=== PATIENT | male | born 1955 ===

== ENCOUNTER 2017-10-12 21:24 | Emergency (ER) | payer BC, OTHER ==
[2017-10-12] MEDS ORDERED: Iohexol 240 (50 ml) PO ONE (21:49)
[2017-10-12] MEDS ORDERED: Iohexol 240 (50 ml) ONE (21:54)
[2017-10-12] MEDS ORDERED: Morphine 4 MG/ML VIAL ONE (21:54)
--- NOTE | 2017-10-12 21:55 | ED PDOC ---
HPI: Abdomen Time Seen by Provider: 10/12/17 21:40 Chief Complaint (Nursing): Abdominal Pain Chief Complaint (Provider): Abdominal pain, nausea History Per: Patient, Family History/Exam Limitations: no limitations Onset/Duration Of Symptoms: Hrs Outside of [place] travel?: No Current Symptoms Are (Timing): Still Present Location Of Pain/Discomfort: RUQ, RLQ Quality Of Discomfort: Sharp, Cramping, Stabbing Associated Symptoms: Nausea, Loss Of Appetite. denies: Fever, Chills, Vomiting , Diarrhea Exacerbating Factors: None Alleviating Factors: None Last Bowel Movement: Today Additional Complaint(s): Pt states that he was having pain since yesterday, worse for 2 hours. PT reports nausea but states he is not going to vomit. Pt had Rx for cipro and flagyl which he began yesterday for his history of diverticulitis. Pt had resection of large intestine due to diverticulitis in the past and for hernia repair. Pt denies fever/chills. Denies urinary symptoms. Past Medical History Reviewed: Historical Data, Nursing Documentation, Vital Signs Vital Signs: Last Vital Signs Temp 98.2 F 10/12/17 22:49 Pulse 104 H 10/12/17 21:31 Resp 16 10/12/17 21:31 BP 149/88 10/12/17 21:31 Pulse Ox 100 10/12/17 21:56 - Medical History PMH: COPD, Diverticulitis, Gastritis, HTN, Hypercholesterolemia, Hyperlipidemia Denies: Chronic Kidney Disease - Surgical History Surgical History: Appendectomy, Hernia Repair (Left abd) - Family History Family History: States: Unknown Family Hx - Living Arrangements Living Arrangements: With Family - Social History Current smoker - smoking cessation education provided: No Alcohol: None Drugs: Denies - Home Medications Home Medications: Ambulatory Orders Medication Instructions Recorded Esomeprazole Magnesium [Nexium] 40 mg PO DAILY 11/08/14 Losartan [Cozaar] 50 mg PO DAILY 11/08/14 Zolpidem [Ambien] 10 mg PO HS 01/06/16 Ciprofloxacin HCl [Cipro] 500 mg PO BID 7 Days tab 09/25/16 Metronidazole [Flagyl] 500 mg PO TID 7 Days tablet 09/25/16 Cyclobenzaprine [Cyclobenzaprine 10 mg PO BID #14 tab 10/08/16 HCl] Ibuprofen [Motrin] 400 mg PO Q6 #30 tab 10/08/16 Ciprofloxacin [Cipro] 500 mg PO BID #14 tab 11/21/16 traMADol [Ultram] 50 mg PO TID PRN #20 tab 11/21/16 Ondansetron ODT [Zofran ODT] 4 mg PO QID #20 odt 10/13/17 oxyCODONE/Acetaminophen [Percocet 1 ea PO Q6H PRN #15 tab 10/13/17 5/325 mg Tab] - Allergies Allergies/Adverse Reactions: Allergies Allergy/AdvReac Type Severity Reaction Status Date / Time No Known Allergies Allergy Verified 01/06/16 14:09 Review of Systems ROS Statement: Except As Marked, All Systems Reviewed And Found Negative Constitutional: Positive for: Fever. Negative for: Chills Gastrointestinal: Positive for: Nausea, Abdominal Pain. Negative for: Vomiting , Diarrhea Genitourinary Male: Negative for: Dysuria, Frequency, Hematuria Physical Exam - Reviewed Nursing Documentation Reviewed: Yes Vital Signs Reviewed: Yes - Physical Exam Appears: Positive for: Well, Non-toxic, No Acute Distress Head Exam: Positive for: ATRAUMATIC, NORMAL INSPECTION, NORMOCEPHALIC Skin: Positive for: Normal Color, Warm, DRY Eye Exam: Positive for: Normal appearance ENT: Positive for: Normal ENT Inspection Neck: Positive for: Normal, Painless ROM Cardiovascular/Chest: Positive for: Regular Rate, Rhythm Respiratory: Positive for: Normal Breath Sounds. Negative for: Accessory Muscle Use Gastrointestinal/Abdominal: Positive for: Bowel Sounds, Soft, Tenderness (RLQ, LLQ). Negative for: Normal Exam, Distended, Guarding, Rebound Back: Positive for: Normal Inspection Extremity: Positive for: Normal ROM Neurologic/Psych: Positive for: Alert, Oriented - Laboratory Results Result Diagrams: 10/12/17 22:26 10/12/17 22:26 - ECG O2 Sat by Pulse Oximetry: 100 Pulse Ox Interpretation: Normal Medical Decision Making Medical Decision Making: Discussed findings on CT scan with patient, and family including DDx. Pts GI is Dr. Duran. States he will call him tomorrow to have colonoscopy scheduled. Pt provided copy of CT report. Continue antibiotics. Pt comfortable at discharge. Disposition - Clinical Impression Clinical Impression: Mural thickening of colon - Patient ED Disposition Is Patient to be Admitted: No - Disposition Disposition: Routine/Home Disposition Time: 01:00 Condition: GOOD Additional Instructions: Please follow-up with Dr. Duran or gastroenterology for further evaluation of abnormal CT result. Prescriptions: Ondansetron ODT [Zofran ODT] 4 mg PO QID #20 odt oxyCODONE/Acetaminophen [Percocet 5/325 mg Tab] 1 ea PO Q6H PRN #15 tab PRN Reason: Pain, Severe (8-10) Instructions: Colonoscopy (GEN) Forms: [employer] (Danish)
[2017-10-12] MEDS ORDERED: Morphine 4 MG/ML VIAL IVP STA (22:23)
[2017-10-12 22:30] LABS: BASO # 0.1 K/uL (0.0-0.2); BASO % 0.8 % (0.0-2.0); EOS # 0.5 K/uL (0.0-0.7); EOS % 3.6 % (0.0-4.0); HEMOGLOBIN 13.6 g/dL (12.0-18.0); LYMPH # 3.1 K/uL (1.0-4.3); MEAN CELL VOLUME 87.1 fl (80.0-94.0); MEAN CORPUSCULAR HGB CONC 34.4 g/dL (33.0-37.0); MEAN PLATELET VOLUME 8.2 fl (7.2-11.7); MONO # 0.9 K/uL (0.0-0.8); MONO % 6.6 % (0.0-10.0); NEUT # 8.9 K/uL (1.8-7.0); RBC 4.53 Mil/uL (4.40-5.90); WHITE BLOOD COUNT 13.4 K/uL (4.8-10.8)
[2017-10-12 22:38] LABS: ALB/GLOB RATIO 1.2 (1.0-2.1); ALBUMIN 3.9 g/dL (3.5-5.0); ALT/SGPT 41 U/L (21-72); AST/SGOT 21 U/L (17-59); BLOOD UREA NITROGEN 16 mg/dl (9-20); CALCIUM 8.8 mg/dL (8.4-10.2); GFR AFRICAN-AMERICAN > 60; GFR NON-AFRICAN AMERICAN > 60
[2017-10-12 22:50] VITALS: TEMP 98.2
[2017-10-12] MEDS ORDERED: Sodium Chloride 0.9% 50 ML IV ONE (23:56)
[2017-10-12] MEDS ORDERED: Iohexol 300 50 ML ONE (23:56)
[2017-10-13 01:25] VITALS: BP 134/79; PULSE 84; RESP 14; O2SAT 95
--- NOTE | 2017-10-13 09:14 | CT ---
PROCEDURE: CT Abdomen and Pelvis with contrast HISTORY: abdominal pain, nausea COMPARISON: 11/21/2016 TECHNIQUE: Contrast dose: 90 mL Omnipaque 300 Radiation dose: Total exam DLP = 907.82 mGy-cm. This CT exam was performed using one or more of the following dose reduction techniques: Automated exposure control, adjustment of the mA and/or kV according to patient size, and/or use of iterative reconstruction technique. FINDINGS: LOWER THORAX: Small amount of oral contrast noted in distal esophagus, nonspecific. Possible gastroesophageal reflux. LIVER: Unremarkable. No gross lesion or ductal dilatation. GALLBLADDER AND BILE DUCTS: Unremarkable. PANCREAS: Unremarkable. No gross lesion or ductal dilatation. SPLEEN: Unremarkable. ADRENALS: Unremarkable. No mass. KIDNEYS AND URETERS: Unremarkable. No hydronephrosis. No solid mass. VASCULATURE: Unremarkable. No aortic aneurysm. BOWEL: Circumferential mural thickening of the hepatic flexure of the colon. Diverticulosis of the transverse colon and flexures. Hazy infiltration of the pericolonic fat about the splenic flexure. Differential diagnosis includes focal colitis such as acute diverticulitis or colonic neoplasm. Further evaluation is advised. No other abnormal bowel loops are identified. No bowel obstruction. APPENDIX: Not visualized PERITONEUM: Unremarkable. No free fluid. No free air. LYMPH NODES: Unremarkable. No enlarged lymph nodes. BLADDER: Unremarkable. REPRODUCTIVE: Normal prostate BONES: No acute fracture. OTHER FINDINGS: None. IMPRESSION: Focal mural thickening of the splenic flexure of the colon with hazy infiltration of the pericolonic fat. Differential diagnosis includes acute focal colitis/ diverticulitis versus colonic neoplasm. Possible gastroesophageal reflux noted with residual oral contrast in the distal esophagus. Preliminary interpretation of this examination was reported by [employer] at 12:26 a.m. on 10/13/2017. There is concurrence of this report with the preliminary interpretation.
--- NOTE | 2017-10-13 10:50 | CARD ---
APPROVED REPORT EKG Measurement Heart [id number] <Conclusion> Normal sinus rhythm Incomplete right bundle branch block Nonspecific T wave abnormality Abnormal ECG
== END 2017-10-13 01:25 | disposition home or self-care (01) ==
LOC: H.ER 21:24
DX: K56.690 Other partial intestinal obstruction (principal); E78.00 Pure hypercholesterolemia, unspecified; I10 Essential (primary) hypertension; J44.9 Chronic obstructive pulmonary disease, unspecified
CPT/HCPCS: 74177; 80053; 84484; 85025; 87040; 87086; 93005; 96374; 96375; 99282; J1885; J2270; J2405; Q9966; Q9967

== ENCOUNTER 2017-11-28 12:30 | Inpatient (IN) | payer BC ==
--- NOTE | 2017-11-28 13:01 | ED PDOC ---
HPI: Abdomen Time Seen by Provider: 11/28/17 12:40 Chief Complaint (Nursing): Abdominal Pain History Per: Patient Onset/Duration Of Symptoms: Days (2) Current Symptoms Are (Timing): Still Present Severity: Moderate Pain Scale Rating Of: 5 Location Of Pain/Discomfort: RLQ Quality Of Discomfort: Unable To Describe Associated Symptoms: Fever, Nausea, Vomiting. denies: Diarrhea, Urinary Symptoms Additional Complaint(s): Right sided abd pain assoc with vomiting and fever. Denies diarrhea. Recently tx 'ed for diverticulitis. Past Medical History Vital Signs: Last Vital Signs Temp 98.4 F 11/28/17 12:32 Pulse 116 H 11/28/17 12:32 Resp 16 11/28/17 12:32 BP 127/81 11/28/17 12:32 Pulse Ox 100 11/28/17 13:01 - Medical History PMH: COPD, Diverticulitis, Gastritis, HTN, Hypercholesterolemia, Hyperlipidemia Denies: Chronic Kidney Disease - Surgical History Surgical History: Appendectomy, Hernia Repair (Left abd) - Family History Family History: States: Unknown Family Hx - Home Medications Home Medications: Ambulatory Orders Medication Instructions Recorded Esomeprazole Magnesium [Nexium] 40 mg PO DAILY 11/08/14 Losartan [Cozaar] 50 mg PO DAILY 11/08/14 Zolpidem [Ambien] 10 mg PO HS 01/06/16 Ciprofloxacin HCl [Cipro] 500 mg PO BID 7 Days tab 09/25/16 Metronidazole [Flagyl] 500 mg PO TID 7 Days tablet 09/25/16 Cyclobenzaprine [Cyclobenzaprine 10 mg PO BID #14 tab 10/08/16 HCl] Ibuprofen [Motrin] 400 mg PO Q6 #30 tab 10/08/16 Ciprofloxacin [Cipro] 500 mg PO BID #14 tab 11/21/16 traMADol [Ultram] 50 mg PO TID PRN #20 tab 11/21/16 Ondansetron ODT [Zofran ODT] 4 mg PO QID #20 odt 10/13/17 oxyCODONE/Acetaminophen [Percocet 1 ea PO Q6H PRN #15 tab 10/13/17 5/325 mg Tab] - Allergies Allergies/Adverse Reactions: Allergies Allergy/AdvReac Type Severity Reaction Status Date / Time No Known Allergies Allergy Verified 01/06/16 14:09 Review of Systems ROS Statement: Except As Marked, All Systems Reviewed And Found Negative Constitutional: Positive for: Fever Gastrointestinal: Positive for: Nausea, Vomiting, Abdominal Pain. Negative for : Diarrhea, Hematochezia, Hematemesis Physical Exam - Reviewed Nursing Documentation Reviewed: Yes Vital Signs Reviewed: Yes - Physical Exam Appears: Positive for: Non-toxic, No Acute Distress Head Exam: Positive for: ATRAUMATIC, NORMAL INSPECTION, NORMOCEPHALIC Skin: Positive for: Normal Color, Warm, DRY Eye Exam: Positive for: EOMI, Normal appearance, PERRL ENT: Positive for: Normal ENT Inspection Neck: Positive for: Normal, Painless ROM Cardiovascular/Chest: Positive for: Regular Rate, Rhythm Respiratory: Positive for: CNT, Normal Breath Sounds Gastrointestinal/Abdominal: Positive for: Bowel Sounds, Soft, Tenderness (RLQ) Back: Positive for: Normal Inspection Extremity: Positive for: Normal ROM Neurologic/Psych: Positive for: Alert, Oriented - Laboratory Results Result Diagrams: 11/28/17 13:14 11/28/17 13:14 - ECG O2 Sat by Pulse Oximetry: 100 Disposition - Clinical Impression Clinical Impression: Diverticulitis large intestine, Sepsis - Patient ED Disposition Is Patient to be Admitted: Yes - Disposition Disposition Time: 14:42 Condition: FAIR Forms: [employer] (Amharic) - Pt Status Changed To: Hospital Disposition Of: Inpatient - Admit Certification Admit to Inpatient:: After my assessment, the patient will require hospitalization for at least two midnights. This is because of the severity of symptoms shown, intensity of services needed, and/or the medical risk in this patient being treated as an outpatient. - POA Present On Arrival: None
[2017-11-28] MEDS ORDERED: Sodium Chloride 0.9% 50 ML IV ONE (13:08)
[2017-11-28] MEDS ORDERED: Iohexol 300 100 ML IJ ONE (13:08)
[2017-11-28 13:21] LABS: BASO # 0.1 K/uL (0.0-0.2); BASO % 0.6 % (0.0-2.0); EOS # 0.1 K/uL (0.0-0.7); EOS % 0.8 % (0.0-4.0); HEMOGLOBIN 13.4 g/dL (12.0-18.0); LYMPH # 1.7 K/uL (1.0-4.3); LYMPH % 12.9 % (20.0-40.0); MEAN CELL VOLUME 86.6 fl (80.0-94.0); MEAN CORPUSCULAR HEMOGLOBIN 29.8 pg (27.0-31.0); MEAN CORPUSCULAR HGB CONC 34.4 g/dL (33.0-37.0); MEAN PLATELET VOLUME 8.4 fl (7.2-11.7); MONO # 0.8 K/uL (0.0-0.8); MONO % 6.3 % (0.0-10.0); NEUT # 10.6 K/uL (1.8-7.0); NEUT % 79.4 % (50.0-75.0); RBC 4.5 Mil/uL (4.40-5.90); RED CELL DISTRIBUTION WIDTH 13.2 % (11.5-14.5); WHITE BLOOD COUNT 13.4 K/uL (4.8-10.8)
[2017-11-28 13:44] LABS: ALB/GLOB RATIO 1.2 (1.0-2.1); ALBUMIN 3.9 g/dL (3.5-5.0); ALT/SGPT 26 U/L (21-72); AST/SGOT 21 U/L (17-59); BLOOD UREA NITROGEN 18 mg/dl (9-20); CALCIUM 8.7 mg/dL (8.4-10.2); GFR AFRICAN-AMERICAN > 60; GFR NON-AFRICAN AMERICAN > 60
[2017-11-28 13:46] LABS: VENOUS BLOOD GAS BASE EXCESS 1.7 mmol/L (0.0-2.0); VENOUS BLOOD GAS PCO2 32 mmHg (40-60); VENOUS BLOOD GAS PO2 36 mm/Hg (30-55); VENOUS BLOOD PH 7.49 (7.32-7.43)
[2017-11-28] MEDS ORDERED: Sodium Chloride 0.9% 1,000 ML IV STA (14:33)
--- NOTE | 2017-11-28 14:35 | CT ---
PROCEDURE: CT Abdomen and Pelvis with contrast HISTORY: abd pain RLQ h/o diverticulitis COMPARISON: Comparison is made to the previous study dated 10/13/2017 TECHNIQUE: Contrast dose: 98 cc of Omnipaque. Axial and reformatted coronal and sagittal CT images of the abdomen and pelvis were obtained after IV contrast administration. Radiation dose: Total exam DLP = 1155.63 mGy-cm. This CT exam was performed using one or more of the following dose reduction techniques: Automated exposure control, adjustment of the mA and/or kV according to patient size, and/or use of iterative reconstruction technique. FINDINGS: LOWER THORAX: No evidence of acute pathology at the lung bases. LIVER: Unremarkable. No gross lesion or ductal dilatation. GALLBLADDER AND BILE DUCTS: Unremarkable. PANCREAS: Unremarkable. No gross lesion or ductal dilatation. SPLEEN: Unremarkable. ADRENALS: Unremarkable. No mass. KIDNEYS AND URETERS: Unremarkable. No hydronephrosis. No solid mass. VASCULATURE: Unremarkable. No aortic aneurysm. BOWEL: There are inflammatory changes adjacent to the cecum. Differential consideration includes focal colitis versus diverticulitis or appendagitis . No evidence of bowel obstruction. Scattered colonic diverticulosis are seen. Postsurgical changes noted in the descending colon again. APPENDIX: No evidence of appendicitis. The appendix is not visualized. PERITONEUM: Unremarkable. No free fluid. No free air. LYMPH NODES: Unremarkable. No enlarged lymph nodes. BLADDER: Unremarkable. REPRODUCTIVE: Unremarkable. BONES: No acute fracture. OTHER FINDINGS: None. IMPRESSION: Inflammatory changes noted adjacent to the cecum. Differential consideration include focal colitis, appendicitis or appendagitis. Otherwise no evidence of acute pathology in the abdomen and pelvis.
[2017-11-28] MEDS ORDERED: Piperacillin/Tazobact 3.375 GM in Sodium Chloride 0.9% 100 ML IVPB STA (14:39)
[2017-11-28] MEDS ORDERED: Piperacillin/Tazobact 3.375 gm Inj IVPB ONE (15:01)
[2017-11-28] MEDS ORDERED: Morphine 4 MG/ML VIAL ONE (16:58)
[2017-11-28] MEDS: Dextrose 5%/Lactated Ringer's 1,000 ML IV SCH (16:59)
--- NOTE | 2017-11-28 19:11 | CP.PCM.CON ---
<Bridget Tate - Last Filed: 11/28/17 19:08> History of Present Illness - History of Present Illness History of Present Illness: General surgery consult note for Dr. Dori Tate, PGY-1 Pt S & E at bedside with attending 62M w/PMH sig for diverticulitis s/p colectomy consulted for RLQ abdominal pain x 1 days. Pt reports suddent onset of RLQ abdominal pain, severe, constant, radiates to epigastric region and LLQ. Admits to fevers (subjective), diarrhea (non bloody), headache, hunger, nausea, vomiting. Denies chills, constipation, hematuria, hematochezia, melena. Pt reports recent colonoscopy (Thursday) with findings of diverticula (many) PMH: diverticulitis, HTN, gastritis PSH: Colectomy 2/2 diverticulitis, Right inguinal hernia repair, ventral hernia repair, appendectomy All: NKDA SH: Denies ETOH, tobacco or illicit drug use Review of Systems - Review of Systems All systems: reviewed and no additional remarkable complaints except - Constitutional Constitutional: Fever, Headache. absent: Chills, Increased Appetite - EENT Nose/Mouth/Throat: absent: Sore Throat - Cardiovascular Cardiovascular: absent: Chest Pain, Palpitations - Gastrointestinal Gastrointestinal: Abdominal Pain, Change in Bowel Habits, Change in Stool Character, Diarrhea, Nausea, Vomiting. absent: Constipation, Hematemesis, Hematochezia, Melena - Genitourinary Genitourinary: absent: Change in Urinary Stream - Integumentary Integumentary: absent: Rash - Psychiatric Psychiatric: absent: Change in Appetite Past Patient History - Infectious Disease Hx of Infectious Diseases: None - Past Medical History & Family History Past Medical History?: Yes - Past Social History Smoking Status: Never Smoked - CARDIAC Hx Cardiac Disorders: Yes - PULMONARY Hx Chronic Obstructive Pulmonary Disease (COPD): Yes - NEUROLOGICAL Hx Neurological Disorder: No - HEENT Hx HEENT Problems: No - RENAL Hx Chronic Kidney Disease: No - ENDOCRINE/METABOLIC Hx Endocrine Disorders: No - HEMATOLOGICAL/ONCOLOGICAL Hx Blood Disorders: No - INTEGUMENTARY Hx Dermatological Problems: No - MUSCULOSKELETAL/RHEUMATOLOGICAL Hx Musculoskeletal Disorders: No - GASTROINTESTINAL Hx Diverticulitis: Yes Hx Gastritis: Yes - GENITOURINARY/GYNECOLOGICAL Hx Genitourinary Disorders: No - PSYCHIATRIC Hx Psychophysiologic Disorder: No Hx Substance Use: No - SURGICAL HISTORY Hx Appendectomy: Yes - ANESTHESIA Hx Anesthesia: Yes Hx Anesthesia Reactions: No Hx Malignant Hyperthermia: No Meds Allergies/Adverse Reactions: Allergies Allergy/AdvReac Type Severity Reaction Status Date / Time No Known Allergies Allergy Verified 01/06/16 14:09 - Medications Medications: Current Medications Sodium Chloride (Sodium Chloride 0.9%) 1,000 mls @ 100 mls/hr IV .Q10H STA Stop: 11/29/17 00:32 Last Admin: 11/28/17 14:51 Dose: 100 mls/hr Dextrose/Lactated Ringer's (Dextrose 5%/Lactated Ringer's) 1,000 mls @ 100 mls/ hr IV .Q10H STEFFANY Stop: 11/29/17 16:53 Last Admin: 11/28/17 16:59 Dose: 100 mls/hr Piperacillin Sod/Tazobactam (Sod 3.375 gm/ Sodium Chloride) 100 mls @ 100 mls/ hr IVPB Q12 STEFFANY PRN Reason: Protocol Losartan Potassium (Cozaar) 50 mg PO DAILY STEFFANY Morphine Sulfate (Morphine) 4 mg IVP Q4 PRN PRN Reason: Pain, severe (8-10) Last Admin: 11/28/17 16:58 Dose: 4 mg Pantoprazole Sodium (Protonix Inj) 40 mg IVP DAILY STEFFANY Physical Exam - Constitutional Appears: Non-toxic, No Acute Distress - Head Exam Head Exam: ATRAUMATIC, NORMAL INSPECTION, NORMOCEPHALIC - Eye Exam Eye Exam: EOMI, Normal appearance - ENT Exam ENT Exam: Mucous Membranes Moist, Normal Exam - Neck Exam Neck exam: Positive for: Full Rom, Normal Inspection - Respiratory Exam Respiratory Exam: NORMAL BREATHING PATTERN - Cardiovascular Exam Cardiovascular Exam: REGULAR RHYTHM, +S1, +S2 - GI/Abdominal Exam GI & Abdominal Exam: Distended, Guarding (RLQ, LLQ, epigastric area), Hypoactive Bowel Sounds, Soft, Tenderness (diffuse). absent: Firm, Hernia, Rebound, Rigid Additional comments: well healed horizontal linear scar - Extremities Exam Extremities exam: Positive for: normal inspection. Negative for: pedal edema - Neurological Exam Neurological exam: Alert, CN II-XII Intact, Oriented x3 - Psychiatric Exam Psychiatric exam: Normal Affect, Normal Mood - Skin Skin Exam: Diaphoretic, Intact, Warm Additional comments: feels warm Results - Vital Signs Recent Vital Signs: Last Vital Signs Temp 98.4 F 11/28/17 12:32 Pulse 96 H 11/28/17 17:25 Resp 20 11/28/17 17:25 BP 117/72 11/28/17 17:25 Pulse Ox 100 11/28/17 14:43 - Labs Result Diagrams: 11/28/17 13:14 11/28/17 13:14 Labs: Laboratory Results - last 24 hr 11/28/17 11/28/17 11/28/17 13:14 13:14 13:40 WBC 13.4 H RBC 4.50 Hgb 13.4 Hct 38.9 MCV 86.6 MCH 29.8 MCHC 34.4 RDW 13.2 Plt Count 205 MPV 8.4 Neut % (Auto) 79.4 H Lymph % (Auto) 12.9 L Nance % (Auto) 6.3 Eos % (Auto) 0.8 Baso % (Auto) 0.6 Neut # (Auto) 10.6 H Lymph # (Auto) 1.7 Nance # (Auto) 0.8 Eos # (Auto) 0.1 Baso # (Auto) 0.1 pO2 36 VBG pH 7.49 H VBG pCO2 32 L VBG HCO3 25.6 VBG Total CO2 25.4 VBG O2 Sat (Calc) 85.0 H VBG Base Excess 1.7 VBG Potassium 3.8 Glucose 98 Lactate 1.0 FiO2 21.0 Sodium 136 133.0 Potassium 3.9 Chloride 104 103.0 Carbon Dioxide 19 L Anion Gap 17 BUN 18 Creatinine 0.8 Est GFR ( Amer) > 60 Est GFR (Non-Af Amer) > 60 Random Glucose 96 Calcium 8.7 Total Bilirubin 1.2 AST 21 ALT 26 Alkaline Phosphatase 66 Total Protein 7.2 Albumin 3.9 Globulin 3.2 Albumin/Globulin Ratio 1.2 Venous Blood Potassium 3.8 Assessment & Plan - Assessment and Plan (Free Text) Assessment: 62M w/abdominal pain due to diverticulitis Plan: Admit to medical service NPO IVF Abx pain control Anti-emetic PRN Montior BMs Further mgmt as per primary teams SHELLY attending Lea, PGY-1 - Date & Time Date: 11/28/17 Time: 18:00 <Chandler Fine - Last Filed: 11/28/17 19:24> History of Present Illness - History of Present Illness History of Present Illness: Patient was seen and examined at the bedside. Agree with resident's note above. Meds - Medications Medications: Current Medications Sodium Chloride (Sodium Chloride 0.9%) 1,000 mls @ 100 mls/hr IV .Q10H STA Stop: 11/29/17 00:32 Last Admin: 11/28/17 14:51 Dose: 100 mls/hr Dextrose/Lactated Ringer's (Dextrose 5%/Lactated Ringer's) 1,000 mls @ 100 mls/ hr IV .Q10H STEFFANY Stop: 11/29/17 16:53 Last Admin: 11/28/17 16:59 Dose: 100 mls/hr Piperacillin Sod/Tazobactam (Sod 3.375 gm/ Sodium Chloride) 100 mls @ 100 mls/ hr IVPB Q12 STEFFANY PRN Reason: Protocol Losartan Potassium (Cozaar) 50 mg PO DAILY [facility] Morphine Sulfate (Morphine) 4 mg IVP Q4 PRN PRN Reason: Pain, severe (8-10) Last Admin: 11/28/17 16:58 Dose: 4 mg Ondansetron HCl (Zofran Inj) 4 mg IVP Q6 PRN PRN Reason: Nausea/Vomiting Pantoprazole Sodium (Protonix Inj) 40 mg IVP DAILY [facility] Results - Vital Signs Recent Vital Signs: Last Vital Signs Temp 98.4 F 11/28/17 12:32 Pulse 96 H 11/28/17 17:25 Resp 20 11/28/17 17:25 BP 117/72 11/28/17 17:25 Pulse Ox 100 11/28/17 14:43 - Labs Result Diagrams: 11/28/17 13:14 11/28/17 13:14 Labs: Laboratory Results - last 24 hr 11/28/17 11/28/17 11/28/17 13:14 13:14 13:40 WBC 13.4 H RBC 4.50 Hgb 13.4 Hct 38.9 MCV 86.6 MCH 29.8 MCHC 34.4 RDW 13.2 Plt Count 205 MPV 8.4 Neut % (Auto) 79.4 H Lymph % (Auto) 12.9 L Nance % (Auto) 6.3 Eos % (Auto) 0.8 Baso % (Auto) 0.6 Neut # (Auto) 10.6 H Lymph # (Auto) 1.7 Nance # (Auto) 0.8 Eos # (Auto) 0.1 Baso # (Auto) 0.1 pO2 36 VBG pH 7.49 H VBG pCO2 32 L VBG HCO3 25.6 VBG Total CO2 25.4 VBG O2 Sat (Calc) 85.0 H VBG Base Excess 1.7 VBG Potassium 3.8 Glucose 98 Lactate 1.0 FiO2 21.0 Sodium 136 133.0 Potassium 3.9 Chloride 104 103.0 Carbon Dioxide 19 L Anion Gap 17 BUN 18 Creatinine 0.8 Est GFR ( Amer) > 60 Est GFR (Non-Af Amer) > 60 Random Glucose 96 Calcium 8.7 Total Bilirubin 1.2 AST 21 ALT 26 Alkaline Phosphatase 66 Total Protein 7.2 Albumin 3.9 Globulin 3.2 Albumin/Globulin Ratio 1.2 Venous Blood Potassium 3.8 - Imaging and Cardiology CT scan - abdomen Status: Image reviewed by me, Report reviewed by me Assessment & Plan - Assessment and Plan (Free Text) Plan: - Repeat labs in am - Antibiotics - IV fluids - pain control - Will follow -
[2017-11-28] MEDS: Piperacillin/Tazobact 3.375 GM in Sodium Chloride 0.9% 100 ML IVPB SCH (23:13)
[2017-11-29] MEDS: Piperacillin/Tazobact 3.375 GM in Sodium Chloride 0.9% 100 ML IVPB SCH ×4 (03:49→21:49)
[2017-11-29] MEDS: Dextrose 5%/Lactated Ringer's 1,000 ML IV SCH ×2 (03:50→14:00)
[2017-11-29] MEDS ORDERED: Influenza Vaccine 18yr & older 0.5 ML/45 MCG SYR IM ONE (07:00)
[2017-11-29 07:04] LABS: HEMOGLOBIN 12.7 g/dL (12.0-18.0); MEAN CELL VOLUME 88.9 fl (80.0-94.0); MEAN CORPUSCULAR HEMOGLOBIN 29.9 pg (27.0-31.0); MEAN CORPUSCULAR HGB CONC 33.6 g/dL (33.0-37.0); RBC 4.26 Mil/uL (4.40-5.90); RED CELL DISTRIBUTION WIDTH 12.9 % (11.5-14.5); WHITE BLOOD COUNT 10.4 K/uL (4.8-10.8)
[2017-11-29 07:41] LABS: ALB/GLOB RATIO 1.1 (1.0-2.1); ALBUMIN 3.4 g/dL (3.5-5.0); ALT/SGPT 29 U/L (21-72); AST/SGOT 21 U/L (17-59); BLOOD UREA NITROGEN 14 mg/dl (9-20); CALCIUM 8.4 mg/dL (8.4-10.2); GFR AFRICAN-AMERICAN > 60; GFR NON-AFRICAN AMERICAN > 60
--- NOTE | 2017-11-29 10:52 | CP.PCM.PN ---
<WilfredDanielle - Last Filed: 11/29/17 10:52> Subjective - Date & Time of Evaluation Date of Evaluation: 11/29/17 Time of Evaluation: 09:15 - Subjective Subjective: General Surgery Dr. Fine Pt S&E @bedside. NAEO. Pt reports improved abd pain. denies F/C, N/V. pt is NPO. Objective - Vital Signs/Intake and Output Vital Signs (last 24 hours): Temp Pulse Resp BP Pulse Ox 98.2 F 67 16 118/76 97 11/29/17 08:06 11/29/17 08:24 11/29/17 08:06 11/29/17 08:24 11/29/17 08:06 - Medications Medications: Current Medications Dextrose/Lactated Ringer's (Dextrose 5%/Lactated Ringer's) 1,000 mls @ 100 mls/ hr IV .Q10H [facility] Stop: 11/29/17 16:53 Last Admin: 11/29/17 03:50 Dose: 100 mls/hr Piperacillin Sod/Tazobactam (Sod 3.375 gm/ Sodium Chloride) 100 mls @ 100 mls/ hr IVPB Q6 [facility] PRN Reason: Protocol Last Admin: 11/29/17 09:01 Dose: 100 mls/hr Losartan Potassium (Cozaar) 50 mg PO DAILY [facility] Last Admin: 11/29/17 08:24 Dose: 50 mg Morphine Sulfate (Morphine) 4 mg IVP Q4 PRN PRN Reason: Pain, severe (8-10) Last Admin: 11/29/17 09:05 Dose: 4 mg Ondansetron HCl (Zofran Inj) 4 mg IVP Q6 PRN PRN Reason: Nausea/Vomiting Pantoprazole Sodium (Protonix Inj) 40 mg IVP DAILY [facility] Last Admin: 11/29/17 08:24 Dose: 40 mg - Labs Labs: 11/29/17 06:19 11/29/17 06:19 - Constitutional Appears: Non-toxic, No Acute Distress - Head Exam Head Exam: NORMAL INSPECTION - Eye Exam Eye Exam: Normal appearance - ENT Exam ENT Exam: Mucous Membranes Moist - Respiratory Exam Respiratory Exam: NORMAL BREATHING PATTERN. absent: Accessory Muscle Use, Respiratory Distress - GI/Abdominal Exam GI & Abdominal Exam: Soft, Tenderness (minimal TTP RLQ). absent: Distended, Guarding, Rebound - Extremities Exam Extremities Exam: Normal Inspection - Neurological Exam Neurological Exam: Alert, Awake, Oriented x3 - Psychiatric Exam Psychiatric exam: Normal Affect, Normal Mood - Skin Skin Exam: Dry, Intact, Normal Color, Warm Assessment and Plan - Assessment and Plan (Free Text) Assessment: 62 y/o M w/ diverticulitis - cont NPO, IVF - cont IV Abx - cont pain management - monitor bowel fxn - serial abd exams - encourage OOB to chair/Amb Pt discussed w/ Dr. Babatunde Hardin DO PGY2 <Chandler Fine - Last Filed: 11/29/17 16:18> Subjective - Date & Time of Evaluation Time of Evaluation: 16:00 - Subjective Subjective: Patient was seen and examined at the bedside. Agree with resident's note above. Objective - Vital Signs/Intake and Output Vital Signs (last 24 hours): Temp Pulse Resp BP Pulse Ox 98.3 F 68 17 126/76 98 11/29/17 15:48 11/29/17 15:48 11/29/17 15:48 11/29/17 15:48 11/29/17 15:48 - Medications Medications: Current Medications Dextrose/Lactated Ringer's (Dextrose 5%/Lactated Ringer's) 1,000 mls @ 100 mls/ hr IV .Q10H [facility] Stop: 11/29/17 16:53 Last Admin: 11/29/17 03:50 Dose: 100 mls/hr Piperacillin Sod/Tazobactam (Sod 3.375 gm/ Sodium Chloride) 100 mls @ 100 mls/ hr IVPB Q6 [facility] PRN Reason: Protocol Last Admin: 11/29/17 09:01 Dose: 100 mls/hr Losartan Potassium (Cozaar) 50 mg PO DAILY [facility] Last Admin: 11/29/17 08:24 Dose: 50 mg Morphine Sulfate (Morphine) 4 mg IVP Q4 PRN PRN Reason: Pain, severe (8-10) Last Admin: 11/29/17 09:05 Dose: 4 mg Ondansetron HCl (Zofran Inj) 4 mg IVP Q6 PRN PRN Reason: Nausea/Vomiting Pantoprazole Sodium (Protonix Inj) 40 mg IVP DAILY [facility] Last Admin: 11/29/17 08:24 Dose: 40 mg - Labs Labs: 11/29/17 06:19 11/29/17 06:19 Assessment and Plan - Assessment and Plan (Free Text) Plan: - Start clear liquid diet - pain control - IV fluids - repeat labs in Am - Will follow
--- NOTE | 2017-11-29 13:53 | HP ---
This is a patient of Dr. Fragoso. I saw the patient while he is away. CHIEF COMPLAINT: Abdominal pain. HISTORY OF PRESENT ILLNESS: This is a 62-year-old male known case of COPD, hypertension, elevated cholesterol, gastritis, history of diverticulosis, and diverticulitis, who was having abdominal pain for two days. The patient was brought to the Emergency Room and was admitted for further management. PAST MEDICAL HISTORY: Significant for hypertension, elevated cholesterol, gastritis, COPD, and diverticulosis. PAST SURGICAL HISTORY: Remarkable for hernia repair and appendectomy. PERSONAL HISTORY: The patient is currently nonsmoker and nondrinker. No substance abuse. REVIEW OF SYSTEMS: Positive for abdominal pain, vomiting, and fever. Review of systems otherwise is negative for headache, dizziness, syncope, loss of consciousness, chest pain, shortness of breath, diarrhea, anemia, joint or extremity pain. Review of systems of all other system is unremarkable. MEDICATIONS: The patient is on multiple medications, which includes Nexium, Cozaar, Ambien, Cipro, Flagyl, Flexeril, Ultram, Zofran, and Percocet. ALLERGIES: THE PATIENT IS NOT ALLERGIC TO ANY MEDICATION. FAMILY HISTORY: Noncontributory. PHYSICAL EXAMINATION: GENERAL: A well-built, well-nourished, 62-year-old male in no acute distress. VITAL SIGNS: Temperature 97.7, pulse 64, respirations 16, blood pressure 125/76, and saturations 97%. HEENT: Pupils reactive to light. No JVD. No thyromegaly. No lymphadenopathy. No nystagmus. Normocephalic, atraumatic skull. HEART: S1 and S2, normal and regular. No significant murmur, gallop or rub is heard. LUNGS: Shows good bilateral air exchange. No rales or rhonchi. ABDOMEN: The patient does have right lower quadrant tenderness and guarding, but the abdomen otherwise is soft and nontender. No organomegaly. No fluid. Bowel sounds are present and normal. No rigidity. No rebound. EXTREMITIES: No edema. No calf swelling. No tenderness. No acute ischemia. HATCH TENDER: Essentially unchanged. There is no sign of any acute gross, focal or motor sensory neurological deficits. DIAGNOSTIC DATA: Available diagnostic data reviewed. WBC 10.4, hemoglobin 12.7, hematocrit 37.9, and platelets 190. yesterday 13.4. ESR is 33. Sodium 137, potassium 3.7, chloride 103, bicarbonate 27, BUN 15, and creatinine 0.9. SMA-7 unremarkable. CAT scan of the abdomen is consistent with diverticulitis. IMPRESSION: consult noted and appreciated. Acute diverticulitis, hypertension, and elevated cholesterol. PLAN: As follows case and plan was discussed with the patient. David Oconnell MD
[2017-11-30] MEDS: Piperacillin/Tazobact 3.375 GM in Sodium Chloride 0.9% 100 ML IVPB SCH ×4 (03:39→21:30)
[2017-11-30 05:52] LABS: HEMOGLOBIN 13.4 g/dL (12.0-18.0); MEAN CELL VOLUME 88.6 fl (80.0-94.0); MEAN CORPUSCULAR HEMOGLOBIN 29.9 pg (27.0-31.0); MEAN CORPUSCULAR HGB CONC 33.7 g/dL (33.0-37.0); RBC 4.48 Mil/uL (4.40-5.90); RED CELL DISTRIBUTION WIDTH 13.1 % (11.5-14.5); WHITE BLOOD COUNT 7.3 K/uL (4.8-10.8)
[2017-11-30 06:14] LABS: ALB/GLOB RATIO 1.1 (1.0-2.1); ALBUMIN 3.5 g/dL (3.5-5.0); ALT/SGPT 29 U/L (21-72); AST/SGOT 20 U/L (17-59); BLOOD UREA NITROGEN 9 mg/dl (9-20); CALCIUM 8.7 mg/dL (8.4-10.2); GFR AFRICAN-AMERICAN > 60; GFR NON-AFRICAN AMERICAN > 60
--- NOTE | 2017-11-30 07:25 | CP.PCM.PN ---
<Stanley Corona - Last Filed: 11/30/17 07:23> Subjective - Date & Time of Evaluation Date of Evaluation: 11/30/17 Time of Evaluation: 07:23 - Subjective Subjective: General Surgery: Dr Fine Pt S&E. Resting comfortably. Reports pain is still present but significantly improved. Denies N/V, F/C. Having BMs. Tolerating CLD. Objective - Vital Signs/Intake and Output Vital Signs (last 24 hours): Temp Pulse Resp BP Pulse Ox 98.2 F 63 18 116/76 97 11/30/17 05:00 11/30/17 05:00 11/30/17 05:00 11/30/17 05:00 11/30/17 05:00 - Medications Medications: Current Medications Piperacillin Sod/Tazobactam (Sod 3.375 gm/ Sodium Chloride) 100 mls @ 100 mls/ hr IVPB Q6 [facility] PRN Reason: Protocol Last Admin: 11/30/17 03:39 Dose: 100 mls/hr Losartan Potassium (Cozaar) 50 mg PO DAILY [facility] Last Admin: 11/29/17 08:24 Dose: 50 mg Morphine Sulfate (Morphine) 4 mg IVP Q4 PRN PRN Reason: Pain, severe (8-10) Last Admin: 11/29/17 09:05 Dose: 4 mg Ondansetron HCl (Zofran Inj) 4 mg IVP Q6 PRN PRN Reason: Nausea/Vomiting Pantoprazole Sodium (Protonix Inj) 40 mg IVP DAILY [facility] Last Admin: 11/29/17 08:24 Dose: 40 mg - Labs Labs: 11/30/17 04:25 11/30/17 04:25 - Constitutional Appears: Non-toxic, No Acute Distress - Eye Exam Eye Exam: Normal appearance - ENT Exam ENT Exam: Mucous Membranes Moist - Respiratory Exam Respiratory Exam: absent: Accessory Muscle Use, Respiratory Distress - Cardiovascular Exam Cardiovascular Exam: REGULAR RHYTHM. absent: Tachycardia - GI/Abdominal Exam GI & Abdominal Exam: Soft, Tenderness (RLQ but improved). absent: Distended, Firm, Guarding, Rigid - Neurological Exam Neurological Exam: Alert, Awake, Oriented x3 - Psychiatric Exam Psychiatric exam: Normal Affect, Normal Mood - Skin Skin Exam: Normal Color, Warm Assessment and Plan - Assessment and Plan (Free Text) Assessment: 62M with right sided diverticulitis Plan: cont IV abx cont CLD will need outpatient colonoscopy with GI in 6-8 weeks will d/w Dr Babatunde Corona, PGY3 <Chandler Fine - Last Filed: 11/30/17 09:34> Subjective - Date & Time of Evaluation Time of Evaluation: 09:00 - Subjective Subjective: Patient was seen and examined at the bedside. Agree with resident's note above. Objective - Vital Signs/Intake and Output Vital Signs (last 24 hours): Temp Pulse Resp BP Pulse Ox 97.7 F 70 18 122/76 98 11/30/17 07:40 11/30/17 08:54 11/30/17 07:40 11/30/17 08:54 11/30/17 07:40 - Medications Medications: Current Medications Piperacillin Sod/Tazobactam (Sod 3.375 gm/ Sodium Chloride) 100 mls @ 100 mls/ hr IVPB Q6 [facility] PRN Reason: Protocol Last Admin: 11/30/17 08:59 Dose: 100 mls/hr Losartan Potassium (Cozaar) 50 mg PO DAILY [facility] Last Admin: 11/30/17 08:54 Dose: 50 mg Morphine Sulfate (Morphine) 4 mg IVP Q4 PRN PRN Reason: Pain, severe (8-10) Last Admin: 11/29/17 09:05 Dose: 4 mg Ondansetron HCl (Zofran Inj) 4 mg IVP Q6 PRN PRN Reason: Nausea/Vomiting Pantoprazole Sodium (Protonix Inj) 40 mg IVP DAILY [facility] Last Admin: 11/30/17 08:54 Dose: 40 mg - Labs Labs: 11/30/17 04:25 11/30/17 04:25 Assessment and Plan - Assessment and Plan (Free Text) Plan: - start low residue diet - Pain control - Continue antibiotics - Will follow
--- NOTE | 2017-11-30 09:13 | CARD ---
APPROVED REPORT EKG Measurement Heart [id number] <Conclusion> Accelerated Junctional rhythm Prolonged QT Abnormal ECG
[2017-11-30 15:35] VITALS: RESP 20
--- NOTE | 2017-11-30 19:55 | CP.PCM.PN ---
Subjective - Date & Time of Evaluation Date of Evaluation: 11/30/17 Time of Evaluation: 11:00 - Subjective Subjective: Patient feels a lot better today Claims that sx started a week after he had colonoscopy. Has no fever now and WBC has gone back to normal levels. Has less abd pain. Tolerated clear liquids. Objective - Vital Signs/Intake and Output Vital Signs (last 24 hours): Temp Pulse Resp BP Pulse Ox 98.2 F 71 20 119/78 95 11/30/17 19:06 11/30/17 19:06 11/30/17 19:06 11/30/17 19:06 11/30/17 19:06 - Medications Medications: Current Medications Piperacillin Sod/Tazobactam (Sod 3.375 gm/ Sodium Chloride) 100 mls @ 100 mls/ hr IVPB Q6 [facility] PRN Reason: Protocol Last Admin: 11/30/17 16:44 Dose: 100 mls/hr Losartan Potassium (Cozaar) 50 mg PO DAILY [facility] Last Admin: 11/30/17 08:54 Dose: 50 mg Morphine Sulfate (Morphine) 4 mg IVP Q4 PRN PRN Reason: Pain, severe (8-10) Last Admin: 11/29/17 09:05 Dose: 4 mg Ondansetron HCl (Zofran Inj) 4 mg IVP Q6 PRN PRN Reason: Nausea/Vomiting Pantoprazole Sodium (Protonix Inj) 40 mg IVP DAILY [facility] Last Admin: 11/30/17 08:54 Dose: 40 mg - Labs Labs: 11/30/17 04:25 11/30/17 04:25 - Head Exam Head Exam: NORMAL INSPECTION - Eye Exam Eye Exam: Normal appearance - ENT Exam ENT Exam: Mucous Membranes Moist - Respiratory Exam Respiratory Exam: Clear to Ausculation Bilateral, NORMAL BREATHING PATTERN - Cardiovascular Exam Cardiovascular Exam: REGULAR RHYTHM - GI/Abdominal Exam GI & Abdominal Exam: Normal Bowel Sounds - Neurological Exam Neurological Exam: CN II-XII Intact, Oriented x3 Assessment and Plan (1) Diverticulitis large intestine Status: Acute (2) Hypertension Status: Acute - Assessment and Plan (Free Text) Plan: Cont meds Cont tx Cont IV antibioitcs advance diet DC plans for AM
[2017-12-01] MEDS: Piperacillin/Tazobact 3.375 GM in Sodium Chloride 0.9% 100 ML IVPB SCH ×3 (03:59→09:24)
--- NOTE | 2017-12-01 07:59 | CP.PCM.PN ---
<KennYolanda - Last Filed: 12/01/17 07:59> Subjective - Date & Time of Evaluation Date of Evaluation: 12/01/17 Time of Evaluation: 07:57 - Subjective Subjective: General Surgery Progress Note - Dr Fine Pt seen and examined at bedside. Resting comfortably. States he is no longer having pain at this time. Tolerating low residue diet at this time. Admits to passing gas and having regular bowel movements. Denies F/C/N/V/CP/SOB. Objective - Vital Signs/Intake and Output Vital Signs (last 24 hours): Temp Pulse Resp BP Pulse Ox 98.2 F 78 20 117/80 98 11/30/17 23:28 11/30/17 23:28 11/30/17 23:28 11/30/17 23:28 11/30/17 23:28 - Medications Medications: Current Medications Piperacillin Sod/Tazobactam (Sod 3.375 gm/ Sodium Chloride) 100 mls @ 100 mls/ hr IVPB Q6 [facility] PRN Reason: Protocol Last Admin: 12/01/17 03:59 Dose: 100 mls/hr Losartan Potassium (Cozaar) 50 mg PO DAILY [facility] Last Admin: 11/30/17 08:54 Dose: 50 mg Morphine Sulfate (Morphine) 4 mg IVP Q4 PRN PRN Reason: Pain, severe (8-10) Last Admin: 11/29/17 09:05 Dose: 4 mg Ondansetron HCl (Zofran Inj) 4 mg IVP Q6 PRN PRN Reason: Nausea/Vomiting Pantoprazole Sodium (Protonix Inj) 40 mg IVP DAILY [facility] Last Admin: 11/30/17 08:54 Dose: 40 mg - Labs Labs: 11/30/17 04:25 11/30/17 04:25 - Constitutional Appears: Well, Non-toxic, No Acute Distress - GI/Abdominal Exam GI & Abdominal Exam: Soft. absent: Distended, Tenderness - Neurological Exam Neurological Exam: Alert, Awake, Oriented x3 - Psychiatric Exam Psychiatric exam: Normal Affect, Normal Mood Assessment and Plan - Assessment and Plan (Free Text) Assessment: 62M with right sided diverticulitis Plan: -cont IV abx -pt stable for D/C with po abx -will need outpatient colonoscopy with GI in 6-8 weeks -discussed w/ Dr Fine <Chandler Fine - Last Filed: 12/01/17 10:59> Subjective - Date & Time of Evaluation Time of Evaluation: 10:15 - Subjective Subjective: Patient was seen and examined at the bedside. Agree with resident's note above. Objective - Vital Signs/Intake and Output Vital Signs (last 24 hours): Temp Pulse Resp BP Pulse Ox 98.3 F 77 20 129/83 100 12/01/17 08:18 12/01/17 08:18 12/01/17 08:18 12/01/17 08:18 12/01/17 08:18 - Medications Medications: Current Medications Piperacillin Sod/Tazobactam (Sod 3.375 gm/ Sodium Chloride) 100 mls @ 100 mls/ hr IVPB Q6 [facility] PRN Reason: Protocol Last Admin: 12/01/17 09:24 Dose: Not Given Losartan Potassium (Cozaar) 50 mg PO DAILY [facility] Last Admin: 12/01/17 08:15 Dose: 50 mg Morphine Sulfate (Morphine) 4 mg IVP Q4 PRN PRN Reason: Pain, severe (8-10) Last Admin: 11/29/17 09:05 Dose: 4 mg Ondansetron HCl (Zofran Inj) 4 mg IVP Q6 PRN PRN Reason: Nausea/Vomiting Pantoprazole Sodium (Protonix Inj) 40 mg IVP DAILY [facility] Last Admin: 12/01/17 08:15 Dose: 40 mg - Labs Labs: 11/30/17 04:25 11/30/17 04:25
[2017-12-01 08:19] VITALS: BP 129/83; PULSE 77; TEMP 98.3; O2SAT 100
--- NOTE | 2017-12-01 12:31 | CP.PCM.DIS ---
Provider - Provider Date of Admission: 11/28/17 14:43 Attending physician: Krunal Fragoso MD Primary care physician: Dr Veliz Consults: Surgery Dr Martinez Time Spent in preparation of Discharge (in minutes): 30 Diagnosis - Discharge Diagnosis (1) Diverticula of colon Status: Chronic (2) Hypertension Status: Chronic (3) Mural thickening of colon Status: Acute Comment: C/W Abx as outpatient. F/U with GI. Cleared from Sx [facility] Hospital Course - Lab Results Lab Results: Micro Results 11/28/17 13:10 Blood-Venous Blood Culture - Preliminary NO GROWTH AFTER 48 HOURS Most Recent Lab Values WBC 7.3 K/uL (4.8-10.8) 11/30/17 04:25 RBC 4.48 Mil/uL (4.40-5.90) 11/30/17 04:25 Hgb 13.4 g/dL (12.0-18.0) 11/30/17 04:25 Hct 39.7 % (35.0-51.0) 11/30/17 04:25 MCV 88.6 fl (80.0-94.0) 11/30/17 04:25 MCH 29.9 pg (27.0-31.0) 11/30/17 04:25 MCHC 33.7 g/dL (33.0-37.0) 11/30/17 04:25 RDW 13.1 % (11.5-14.5) 11/30/17 04:25 Plt Count 201 K/uL (130-400) 11/30/17 04:25 MPV 8.4 fl (7.2-11.7) 11/28/17 13:14 Neut % (Auto) 79.4 % (50.0-75.0) H 11/28/17 13:14 Lymph % (Auto) 12.9 % (20.0-40.0) L 11/28/17 13:14 [place] % (Auto) 6.3 % (0.0-10.0) 11/28/17 13:14 Eos % (Auto) 0.8 % (0.0-4.0) 11/28/17 13:14 Baso % (Auto) 0.6 % (0.0-2.0) 11/28/17 13:14 Neut # (Auto) 10.6 K/uL (1.8-7.0) H 11/28/17 13:14 Lymph # (Auto) 1.7 K/uL (1.0-4.3) 11/28/17 13:14 [place] # (Auto) 0.8 K/uL (0.0-0.8) 11/28/17 13:14 Eos # (Auto) 0.1 K/uL (0.0-0.7) 11/28/17 13:14 Baso # (Auto) 0.1 K/uL (0.0-0.2) 11/28/17 13:14 ESR 33 mm/hr (0-20) H 11/29/17 06:19 pO2 36 mm/Hg (30-55) 11/28/17 13:40 VBG pH 7.49 (7.32-7.43) H 11/28/17 13:40 VBG pCO2 32 mmHg (40-60) L 11/28/17 13:40 VBG HCO3 25.6 mmol/L 11/28/17 13:40 VBG Total CO2 25.4 mmol/L (22-28) 11/28/17 13:40 VBG O2 Sat (Calc) 85.0 % (40-65) H 11/28/17 13:40 VBG Base Excess 1.7 mmol/L (0.0-2.0) 11/28/17 13:40 VBG Potassium 3.8 mmol/L (3.6-5.2) 11/28/17 13:40 Sodium 133.0 mmol/L (132-148) 11/28/17 13:40 Chloride 103.0 mmol/L (98-107) 11/28/17 13:40 Glucose 98 mg/dL (75-110) 11/28/17 13:40 Lactate 1.0 mmol/L (0.7-2.1) 11/28/17 13:40 FiO2 21.0 % 11/28/17 13:40 Sodium 141 mmol/l (132-148) 11/30/17 04:25 Potassium 3.8 MMOL/L (3.6-5.0) 11/30/17 04:25 Chloride 106 mmol/L (98-107) 11/30/17 04:25 Carbon Dioxide 26 mmol/L (22-30) 11/30/17 04:25 Anion Gap 13 (10-20) 11/30/17 04:25 BUN 9 mg/dl (9-20) 11/30/17 04:25 Creatinine 0.8 mg/dl (0.8-1.5) 11/30/17 04:25 Est GFR ( Amer) > 60 11/30/17 04:25 Est GFR (Non-Af Amer) > 60 11/30/17 04:25 Random Glucose 97 mg/dL (75-110) 11/30/17 04:25 Calcium 8.7 mg/dL (8.4-10.2) 11/30/17 04:25 Total Bilirubin 0.6 mg/dl (0.2-1.3) 11/30/17 04:25 AST 20 U/L (17-59) 11/30/17 04:25 ALT 29 U/L (21-72) 11/30/17 04:25 Alkaline Phosphatase 57 U/L (38-126) 11/30/17 04:25 Total Protein 6.7 G/DL (6.3-8.2) 11/30/17 04:25 Albumin 3.5 g/dL (3.5-5.0) 11/30/17 04:25 Globulin 3.2 gm/dL (2.2-3.9) 11/30/17 04:25 Albumin/Globulin Ratio 1.1 (1.0-2.1) 11/30/17 04:25 Venous Blood Potassium 3.8 mmol/L (3.6-5.2) 11/28/17 13:40 - Hospital Course Hospital Course: 62 y/o M admitted with abd pain and found to have colonic inflammation on CT of abd. Patient underwent Colonoscopy as outpatient 5 days before hosp admission. Sx evalauted patient and cleared from Sx POV. Pain resolved. Afebrile. Patient tolerating PO and is being DC home with PO Abx and F/U as outpatient Discharge Exam - Head Exam Head Exam: NORMAL INSPECTION - Eye Exam Eye Exam: EOMI, PERRL - ENT Exam ENT Exam: Mucous Membranes Moist - Respiratory Exam Respiratory Exam: Clear to PA & Lateral, NORMAL BREATHING PATTERN, UNREMARKABLE - Cardiovascular Exam Cardiovascular Exam: REGULAR RHYTHM, +S1, +S2 - GI/Abdominal Exam GI & Abdominal Exam: Normal Bowel Sounds, Soft. absent: Guarding, Rebound - Neurological Exam Neurological exam: Alert, Normal Gait, Oriented x3 - Psychiatric Exam Psychiatric exam: Normal Affect, Normal Mood - Skin Skin Exam: Normal Color, Warm Discharge Plan - Discharge Medications Prescriptions: Ciprofloxacin HCl [Cipro] 500 mg PO Q12 #14 tablet Lactobacillus Acidophilus [Bacid Acidophilus] 1 cap PO BID #14 cap Metronidazole [Flagyl] 500 mg PO Q8 #21 tablet - Follow Up Plan Condition: STABLE Disposition: HOME/ ROUTINE Instructions: Low Fiber Diet, Diverticulitis (DC), Sepsis, Adult (DC), Hypertension (DC), Hypertension (GEN) Additional Instructions: pt. doing well today, tolerating diet, + flatus/ bm continue con antibioticos cipro/flagyl por 1 semana Hacer caity con y Referrals: Bruno Veliz MD [Family Provider] - Chandler Fine MD [Staff Provider] -
--- NOTE | 2017-12-01 15:55 | PQF GENQUE ---
Dr. Fragoso, ER MD documented the following information with no mention of this diagnosis in your documentation. Please indicate in your discharge summary your agreement with ER MD or provide clarification that this diagnosis is not a current condition. Diagnosis: Sepsis Please clarify if this was an active condition(s) that resolved prior to discharge or this condition(s) was ruled out. WBC: 13.4->10.4->7.3 left shift Pulse:116->96->96->78-.69 Blood culture x 1: no growth after 3 days ER: Clinical Impression : Diverticulitis large intestine, Sepsis POA; none H and P: Impression: Acute diverticulitis, hypertension, and elevated cholesterol. IVF's, IV: Vancomycin and Piperacillin This form is a permanent part of the medical record Clarification of your documentation is requested to better reflect the severity of illness and intensity of treatment of your patient. Indicators present [] Specify: [] [] Specify: [] [] Specify: [] [] Specify: [] Location in the medical record that reflects the above clinical findings: [] Treatment Provided: [] PHYSICIAN'S RESPONSE Based on your medical judgment of the clinical indicators outlined above please clarify the following: [] Practitioner response [] If unable to determine, please check the box, sign and date. Present On Admission (POA) Indicator: [] Present at the time of admission [] Not present at the time of admission [] Clinically Undetermined In responding to this query, please exercise your independent professional judgment. The fact that a question is asked does not imply that any particular answer is desired or expected. Thank you for your clarification on this documentation. If you have any questions please call. * Thank you, Nancy Brunson RN ext. #[phone] MTDD
== END 2017-12-01 12:09 | disposition home or self-care (01) | DRG 392 ==
LOC: H.ER 12:30 → H.ERHOLD 14:43 → H.TEL 20:50 → H.MEDSURG1 11-30 22:44
PROVIDERS: ADMIT Family Medicine; ATTEND Family Medicine
PROC: 3E0234Z Introduction of Serum, Toxoid and Vaccine into Muscle, Percutaneous Approach (ICD-10-PCS; principal; 2017-11-29)
DX: K57.32 Diverticulitis of large intestine without perforation or abscess without bleeding (principal); E78.00 Pure hypercholesterolemia, unspecified; I10 Essential (primary) hypertension; J44.9 Chronic obstructive pulmonary disease, unspecified; K29.70 Gastritis, unspecified, without bleeding; E78.5 Hyperlipidemia, unspecified; Z23 Encounter for immunization

== ENCOUNTER 2018-10-28 06:06 | Emergency (ER) | payer BC, OTHER ==
[2018-10-28] MEDS ORDERED: Morphine 4 MG/ML VIAL IVP STA (06:55)
[2018-10-28] MEDS ORDERED: Sodium Chloride 0.9% 1,000 ML IV STA (06:55)
[2018-10-28] MEDS ORDERED: Morphine 4 MG/ML VIAL ONE ×2 (07:02→09:04)
--- NOTE | 2018-10-28 07:35 | ED PDOC ---
HPI: Abdomen Time Seen by Provider: 10/28/18 06:53 Chief Complaint (Nursing): Abdominal Pain Chief Complaint (Provider): Abdominal Pain History Per: Patient History/Exam Limitations: language barrier (patient history was obtained by Catrachita Chery as machine adjuster leader) Onset/Duration Of Symptoms: Days (x4) Current Symptoms Are (Timing): Still Present Additional Complaint(s): patient is a 63 y/o male with a PMHx of diverticulitis, gastritis, HTN, hypercholesterolemia, hyperlipidemia, and COPD who presents to the ED for evaluation of worsening left lower abdominal pain, onset 10/25/2018. Patient admits to nausea and decreased appetite. Patient denies vomiting, blood in stool, and urinary symptoms. Patient had diverticulitis surgery in hospital and reports to have experienced no problems since. PCP: Dr. Bruno Veliz Past Medical History Vital Signs: Last Vital Signs Temp 97.8 F 10/28/18 06:30 Pulse 76 10/28/18 06:30 Resp 18 10/28/18 06:30 BP 128/87 10/28/18 06:30 Pulse Ox 98 10/28/18 06:30 - Medical History PMH: COPD, Diverticulitis, Gastritis, HTN, Hypercholesterolemia, Hyperlipidemia Denies: HIV, Chronic Kidney Disease - Surgical History Surgical History: Appendectomy, Hernia Repair (Left abd) - Family History Family History: States: Unknown Family Hx - Home Medications Home Medications: Ambulatory Orders Medication Instructions Recorded Losartan [Cozaar] 50 mg PO DAILY 11/28/17 Omeprazole 40 mg PO DAILY 11/28/17 oxyCODONE/Acetaminophen [Percocet 1 tab PO Q4H PRN 11/28/17 5/325 mg Tab] Ciprofloxacin HCl [Cipro] 500 mg PO Q12 #14 tablet 12/01/17 Lactobacillus Acidophilus [Bacid 1 cap PO BID #14 cap 12/01/17 Acidophilus] Metronidazole [Flagyl] 500 mg PO Q8 #21 tablet 12/01/17 - Allergies Allergies/Adverse Reactions: Allergies Allergy/AdvReac Type Severity Reaction Status Date / Time No Known Allergies Allergy Verified 01/06/16 14:09 Review of Systems ROS Statement: Except As Marked, All Systems Reviewed And Found Negative Gastrointestinal: Positive for: Nausea, Abdominal Pain (LLQ). Negative for: Vomiting, Melena, Hematochezia Genitourinary Male: Negative for: Dysuria, Hematuria Physical Exam - Reviewed Nursing Documentation Reviewed: Yes Vital Signs Reviewed: Yes - Physical Exam Appears: Positive for: No Acute Distress Head Exam: Positive for: ATRAUMATIC, NORMAL INSPECTION, NORMOCEPHALIC Gastrointestinal/Abdominal: Positive for: Tenderness (LLQ), Distended, Guarding Neurologic/Psych: Positive for: Alert, Oriented - ECG O2 Sat by Pulse Oximetry: 98 (RA) Pulse Ox Interpretation: Normal Medical Decision Making Medical Decision Making: Time: 653 Impression: Diverticulitis/Possible Perforations Plan: Type and Screen Venous Blood Gas Shock Panel EKG CMP Lipase CBC PTT Prothrombin Time Chest Portable [Rad] CT Abd/Pelvis w/ IV Contrast morphine 2 mg IVP IV Fluids Zofran Inj 4 mg IVP 800am Pt with mildly improved pain with Morphine. IV fluids started. Labs pending. Pt drinking contast for CT. Pt to be signed out to Dr. John with labs and CT pending. ------- Scribe Attestation: Documented by Shailesh Arteaga, acting as a scribe for Lizette Dodd MD. Provider Scribe Attestation: All medical record entries made by the Scribe were at my direction and personally dictated by me. I have reviewed the chart and agree that the record accurately reflects my personal performance of the history, physical exam, medical decision making, and the department course for this patient. I have also personally directed, reviewed, and agree with the discharge instructions and disposition. Disposition - Clinical Impression Clinical Impression: Abdominal pain, Diverticulitis - Disposition Disposition: Transfer of Care Disposition Time: 08:00 Condition: STABLE Forms: [employer] ([place])
[2018-10-28 07:58] LABS: BASO % 0.6 % (0.0-2.0); EOS # 0.3 K/uL (0.0-0.7); EOS % 4.9 % (0.0-4.0); HEMOGLOBIN 13.9 g/dL (12.0-18.0); LYMPH # 2.2 K/uL (1.0-4.3); LYMPH % 34.5 % (20.0-40.0); MEAN CORPUSCULAR HEMOGLOBIN 30.5 pg (27.0-31.0); MEAN CORPUSCULAR HGB CONC 33.6 g/dL (33.0-37.0); MEAN PLATELET VOLUME 8.5 fl (7.2-11.7); MONO # 0.6 K/uL (0.0-0.8); MONO % 8.9 % (0.0-10.0); NEUT # 3.3 K/uL (1.8-7.0); NEUT % 51.1 % (50.0-75.0); RBC 4.55 Mil/uL (4.40-5.90); RED CELL DISTRIBUTION WIDTH 13.1 % (11.5-14.5); WHITE BLOOD COUNT 6.4 K/uL (4.8-10.8)
[2018-10-28 08:04] LABS: INR 1.2; PROTHROMBIN TIME 13.1 Seconds (9.8-13.1)
[2018-10-28 08:07] LABS: PARTIAL THROMBOPLASTIN TIME 33.4 Seconds (25.6-37.1)
[2018-10-28 08:08] LABS: VENOUS BLOOD GAS BASE EXCESS -1.1 mmol/L (0.0-2.0); VENOUS BLOOD GAS PCO2 45 mmHg (40-60); VENOUS BLOOD GAS PO2 50 mm/Hg (30-55); VENOUS BLOOD PH 7.35 (7.32-7.43)
--- NOTE | 2018-10-28 08:11 | ED PDOC ---
- Laboratory Results Result Diagrams: 10/28/18 06:55 10/28/18 06:55 Lab Results: pO2 50 mm/Hg (30-55) 10/28/18 08:03 VBG pH 7.35 (7.32-7.43) 10/28/18 08:03 VBG pCO2 45 mmHg (40-60) 10/28/18 08:03 VBG HCO3 23.7 mmol/L 10/28/18 08:03 VBG Total CO2 26.2 mmol/L (22-28) 10/28/18 08:03 VBG O2 Sat (Calc) 89.2 % (40-65) H 10/28/18 08:03 VBG Base Excess -1.1 mmol/L (0.0-2.0) L 10/28/18 08:03 VBG Potassium 3.8 mmol/L (3.6-5.2) 10/28/18 08:03 Sodium 136.0 mmol/L (132-148) 10/28/18 08:03 Chloride 108.0 mmol/L (98-107) H 10/28/18 08:03 Glucose 92 mg/dL (75-110) 10/28/18 08:03 Lactate 0.9 mmol/L (0.7-2.1) 10/28/18 08:03 FiO2 21.0 % 10/28/18 08:03 PT 13.1 Seconds (9.8-13.1) 10/28/18 06:55 INR 1.2 10/28/18 06:55 APTT 33.4 Seconds (25.6-37.1) 10/28/18 06:55 - ECG ECG Rhythm: Positive for: Normal ST Segment, Sinus Rhythm Rate: 70 O2 Sat by Pulse Oximetry: 98 (RA) Medical Decision Making Medical Decision Making: Time: 0800 Patient is endorsed to provider from Dr. Dodd. Time: 0910 Chest X-Ray FINDINGS: LUNGS: There is right infrahilar airspace opacity PLEURA: No pleural effusion is identified. CARDIOVASCULAR: Heart size is within normal limits. No atherosclerotic calcification present. OSSEOUS STRUCTURES: Degenerative changes noted of the spine. VISUALIZED UPPER ABDOMEN: Unremarkable. OTHER FINDINGS: None. IMPRESSION: Right infrahilar airspace opacity. Differential considerations include infectious/inflammatory process versus crowding of vascular structures. Accession No. : [id number] Patient Name / ID : JP [id number] / [id number] Exam Date : 10/28/2018 09:33:28 ( Approved ) Study Comment : Sex / Age : M / 63Y Creator : Brett Quintana MD Dictator : Brett Quintana MD Feed Weigher : [employer] Supervisor : Brett Quintana MD Approver2 : Report Date : 10/28/2018 10:15:12 My Comment : Date of service: 2018-10-28 09:33:28 PROCEDURE: CT Abdomen and Pelvis . HISTORY: LLQ pain. COMPARISON: Comparison made with prior CT scan of the abdomen and pelvis dated 11/28/2017. TECHNIQUE: Contiguous axial images of the abdomen and pelvis. Oral contrast was administered. No IV contrast given. Coronal and Sagittal reformats generated. Radiation dose: Total exam DLP = 932.8 mGy-cm. This CT exam was performed using one or more of the following dose reduction techniques: Automated exposure control, adjustment of the mA and/or kV according to patient size, and/or use of iterative reconstruction technique. FINDINGS: LOWER THORAX: Heart size is upper limits of normal. No significant pericardial effusion. There is a small hiatal hernia. The mild passive/dependent type atelectasis both posterior lower lung landa. LIVER: Liver exhibits normal size measuring nearly 18 cm in CC dimension. Mild diffuse fatty hepatic infiltration. No obvious hepatic masses collections or calcifications. Portal and splenic veins are opacified. Dilatation. GALLBLADDER AND BILE DUCTS: Gallbladder physiologically distended. No evidence of intraluminal gallbladder calculi. No obvious pericholecystic fluid collections are identified. PANCREAS: Pancreas appears atrophic and fatty replaced. No pancreatic masses collections or calcifications.. SPLEEN: Unremarkable. No splenomegaly. ADRENALS: No adrenal lesions.. KIDNEYS AND URETERS: Kidneys demonstrate symmetric nephrograms. No evidence of nephrolithiasis or hydronephrosis. Sis. BLADDER: Urinary bladder is physiologically distended. No evidence of intraluminal urinary bladder calculi... REPRODUCTIVE: Prostate gland measures approximately 4.1 cm in transverse dimension. Prostatic calcifications present.. APPENDIX: Appendix is not seen with complete certainty on this study however no obvious inflammatory changes right lower quadrant of the abdomen.. BOWEL: Evaluation of the bowel is somewhat limited due to the lack of oral contrast material. The stomach is incompletely distended with slight thick-walled appearance. Visualized loops of small bowel exhibit normal contour and caliber. No evidence of acute mechanical small bowel obstruction. There is an anastomosis seen at the level of the distal descending colon. Multiple colonic diverticula are also present the bulk which arise from the descending and sigmoid colon. Wall thickening of a short segment of the proximal descending colon just proximal to the anastomosis with mild infiltration changes in the adjacent mesentery. Findings are consistent with mild acute diverticulitis.. PERITONEUM: Unremarkable. No fluid collection. No free air. Small fat containing bilateral inguinal hernias are present.. There is also small fat containing ventral wall hernia lower abdomen.. LYMPH NODES: Unremarkable. No enlarged lymph nodes. VASCULATURE: Unremarkable. No aortic aneurysm. No aortic atherosclerotic calcification or mural plaque present. BONES: Mild multilevel degenerative spondylosis of the thoracic and lumbar spine. There are no acute compression fractures nor retropulsed fragments. OTHER FINDINGS: None. IMPRESSION: Diverticulosis with additional findings consistent with mild acute diverticulitis involving short segment of the proximal/mid descending colon. There also an anastomosis of the distal descending colon just distal to the area of diverticulitis. Mild fatty hepatic infiltration. 10:40 Pt sleeping comfortably, notified of CT results. Cipro and Flagyl ordered. GI: Dr. Osborne. Scribe Attestation: Documented by Shailesh Arteaga, acting as a scribe Rodrigo John MD. Provider Scribe Attestation: All medical record entries made by the Scribe were at my direction and personally dictated by me. I have reviewed the chart and agree that the record accurately reflects my personal performance of the history, physical exam, medical decision making, and the department course for this patient. I have also personally directed, reviewed, and agree with the discharge instructions and disposition. Disposition - Clinical Impression Clinical Impression: Abdominal pain, Diverticulitis - Disposition Condition: STABLE Forms: [employer] ([place])
[2018-10-28 08:14] LABS: ALB/GLOB RATIO 1.3 (1.0-2.1); ALT/SGPT 31 U/L (21-72); AST/SGOT 32 U/L (17-59); BLOOD UREA NITROGEN 15 mg/dl (9-20); CALCIUM 8.7 mg/dL (8.4-10.2); GFR NON-AFRICAN AMERICAN > 60; LIPASE 101 U/L (23-300)
[2018-10-28] MEDS ORDERED: Morphine 4 MG/ML VIAL IV STA (08:48)
--- NOTE | 2018-10-28 08:48 | RAD ---
Date of service: 10/28/2018 HISTORY: possible admission COMPARISON: Chest x-ray 10/08/2016 TECHNIQUE: Chest one view . FINDINGS: LUNGS: There is right infrahilar airspace opacity PLEURA: No pleural effusion is identified. CARDIOVASCULAR: Heart size is within normal limits. No atherosclerotic calcification present. OSSEOUS STRUCTURES: Degenerative changes noted of the spine. VISUALIZED UPPER ABDOMEN: Unremarkable. OTHER FINDINGS: None. IMPRESSION: Right infrahilar airspace opacity. Differential considerations include infectious/inflammatory process versus crowding of vascular structures.
[2018-10-28] MEDS ORDERED: Iohexol 300 100 ML IJ ONE (09:31)
[2018-10-28] MEDS ORDERED: Sodium Chloride 0.9% 50 ML IV ONE (09:32)
[2018-10-28] MEDS ORDERED: metroNIDAZOLE 500mg/100ml NS 100 ML IV STA (10:41)
[2018-10-28] MEDS ORDERED: Ciprofloxacin 400mg/200ml D5W 400 MG/200 ML BAG IV STA (10:41)
--- NOTE | 2018-10-28 10:43 | CT ---
Date of service: 2018-10-28 09:33:28 PROCEDURE: CT Abdomen and Pelvis . HISTORY: LLQ pain. COMPARISON: Comparison made with prior CT scan of the abdomen and pelvis dated 11/28/2017. TECHNIQUE: Contiguous axial images of the abdomen and pelvis. Oral contrast was administered. No IV contrast given. Coronal and Sagittal reformats generated. Radiation dose: Total exam DLP = 932.8 mGy-cm. This CT exam was performed using one or more of the following dose reduction techniques: Automated exposure control, adjustment of the mA and/or kV according to patient size, and/or use of iterative reconstruction technique. FINDINGS: LOWER THORAX: Heart size is upper limits of normal. No significant pericardial effusion. There is a small hiatal hernia. The mild passive/dependent type atelectasis both posterior lower lung landa. LIVER: Liver exhibits normal size measuring nearly 18 cm in CC dimension. Mild diffuse fatty hepatic infiltration. No obvious hepatic masses collections or calcifications. Portal and splenic veins are opacified. Dilatation. GALLBLADDER AND BILE DUCTS: Gallbladder physiologically distended. No evidence of intraluminal gallbladder calculi. No obvious pericholecystic fluid collections are identified. PANCREAS: Pancreas appears atrophic and fatty replaced. No pancreatic masses collections or calcifications.. SPLEEN: Unremarkable. No splenomegaly. ADRENALS: No adrenal lesions.. KIDNEYS AND URETERS: Kidneys demonstrate symmetric nephrograms. No evidence of nephrolithiasis or hydronephrosis. Sis. BLADDER: Urinary bladder is physiologically distended. No evidence of intraluminal urinary bladder calculi... REPRODUCTIVE: Prostate gland measures approximately 4.1 cm in transverse dimension. Prostatic calcifications present.. APPENDIX: Appendix is not seen with complete certainty on this study however no obvious inflammatory changes right lower quadrant of the abdomen.. BOWEL: Evaluation of the bowel is somewhat limited due to the lack of oral contrast material. The stomach is incompletely distended with slight thick-walled appearance. Visualized loops of small bowel exhibit normal contour and caliber. No evidence of acute mechanical small bowel obstruction. There is an anastomosis seen at the level of the distal descending colon. Multiple colonic diverticula are also present the bulk which arise from the descending and sigmoid colon. Wall thickening of a short segment of the proximal descending colon just proximal to the anastomosis with mild infiltration changes in the adjacent mesentery. Findings are consistent with mild acute diverticulitis.. PERITONEUM: Unremarkable. No fluid collection. No free air. Small fat containing bilateral inguinal hernias are present.. There is also small fat containing ventral wall hernia lower abdomen.. LYMPH NODES: Unremarkable. No enlarged lymph nodes. VASCULATURE: Unremarkable. No aortic aneurysm. No aortic atherosclerotic calcification or mural plaque present. BONES: Mild multilevel degenerative spondylosis of the thoracic and lumbar spine. There are no acute compression fractures nor retropulsed fragments. OTHER FINDINGS: None. IMPRESSION: Diverticulosis with additional findings consistent with mild acute diverticulitis involving short segment of the proximal/mid descending colon. There also an anastomosis of the distal descending colon just distal to the area of diverticulitis. Mild fatty hepatic infiltration.
[2018-10-28] MEDS ORDERED: Ciprofloxacin 400mg/200ml D5W 400 MG/200 ML BAG IVPB ONE (10:49)
[2018-10-28] MEDS ORDERED: metroNIDAZOLE 500mg/100ml NS 100 ML IVPB ONE (10:50)
[2018-10-28 11:19] VITALS: RESP 18; O2SAT 97
[2018-10-28 13:08] VITALS: BP 113/79; PULSE 70; TEMP 98.2
--- NOTE | 2018-10-28 20:22 | CARD ---
APPROVED REPORT Date of service: 10/28/2018 EKG Measurement Heart [id number] <Conclusion> Normal sinus rhythm Normal ECG
== END 2018-10-28 13:08 | disposition home or self-care (01) ==
LOC: H.ER 06:06
DX: K57.90 Diverticulosis of intestine, part unspecified, without perforation or abscess without bleeding (principal); R10.30 Lower abdominal pain, unspecified; E78.00 Pure hypercholesterolemia, unspecified; I10 Essential (primary) hypertension; J44.9 Chronic obstructive pulmonary disease, unspecified
CPT/HCPCS: 71045; 74177; 80053; 82803; 83690; 85025; 85610; 85730; 86850; 86900; 93005; 96365; 96367; 96375; 96376; 99283; J0744; J2270; J2405; J7030; Q9967